=== PATIENT | male | born 1995 | race Caucasian/White ===

== ENCOUNTER → 2017-12-12 08:31 | Outpatient (CLI) | payer OTHER, SELFPAY ==
[2017-12-12 09:19] LABS: Hemoglobin 15.6 g/dl (13.0-16.5); Mean Corp Hgb Conc 33.9 g/gl (32-36); Mean Corpuscular Hgb 29.4 pg (27.0-32.0); Mean Corpuscular Volume 86.6 fL (80-94); Mean Platelet Vol. 9.3 fl (6.2-12.0); Platelet Count 265 K/mm3 (150-450); RBC Distribution Width CV 12.4 % (11.6-14.6); RBC Distribution Width SD 39.2 fl (35.1-43.9); Red Blood Count 5.31 M/mm3 (4.6-6.2); White Blood Count 3.3 K/mm3 (4.4-11.0)
[2017-12-12 09:22] LABS: Scan Indicated on CBC? Y/N NO
[2017-12-12 09:45] LABS: Hemoglobin A1c 5.2 % (4.2-6.3)
[2017-12-12 09:47] LABS: AST(SGOT) 19 U/L (15-37); Alanine Aminotransfer ALT/SGPT 26 U/L (16-61); Anion Gap 6 (5-15); BUN 19 mg/dL (7-18); BUN/Creat Ratio 15.8 RATIO (10-20); Calcium,Total 9.2 mg/dL (8.5-10.1); Chloride 106 mmol/L (98-107); Cholesterol 195 mg/dL (200); EST Glomerular Filtration Rate 80 mL/min (>60); Est Glom Filt Rate - Afr Amer 96 mL/min (>60); Glucose 95 mg/dL (74-106); High Density Lipoprotein 57 mg/dL; Potassium 3.9 mmol/L (3.5-5.1); Sodium Level 142 mmol/L (136-145); Triglycerides 65 mg/dL; Very Low Density Lipoprotein 13 mg/dL (5-40)
[2017-12-13 09:55] LABS: Vitamin D,25 Hydroxy 26.4 ng/mL (29.95-100.01)
== END ==
PROVIDERS: Family Provider Family Medicine; PCP Family Medicine
DX: Z79.899 Other long term (current) drug therapy (principal)
CPT/HCPCS: 36415; 80048; 80061; 82306; 83036; 84450; 84460; 85027

== ENCOUNTER → 2019-01-30 | Outpatient (CLI) | payer OTHER, SELFPAY ==
[2014-02-04 14:02] VITALS: BMI 22.3
[2019-01-30 09:21] LABS: Hematocrit 46.4 % (40-54); Mean Corp Hgb Conc 34.5 g/gl (32-36); Mean Corpuscular Hgb 29.4 pg (27.0-32.0); Mean Corpuscular Volume 85.3 fL (80-94); Mean Platelet Vol. 9.6 fl (6.2-12.0); Platelet Count 248 K/mm3 (150-450); RBC Distribution Width SD 37.3 fl (35.1-43.9); Red Blood Count 5.44 M/mm3 (4.6-6.2); Scan Indicated on CBC? Y/N NO; White Blood Count 4.3 K/mm3 (4.4-11.0)
[2019-01-30 10:03] LABS: AST(SGOT) 13 U/L (15-37); Alanine Aminotransfer ALT/SGPT 21 U/L (16-61); Anion Gap 1 (5-15); BUN 16 mg/dL (7-18); BUN/Creat Ratio 13.6 RATIO (10-20); Chloride 107 mmol/L (98-107); Cholesterol 199 mg/dL (200); Creatinine, Serum 1.18 mg/dL (0.70-1.30); EST Glomerular Filtration Rate 80 mL/min (>60); Est Glom Filt Rate - Afr Amer 97 mL/min (>60); Glucose 95 mg/dL (74-106); High Density Lipoprotein 53 mg/dL; Potassium 3.9 mmol/L (3.5-5.1); Sodium Level 137 mmol/L (136-145); Triglycerides 77 mg/dL; Very Low Density Lipoprotein 15 mg/dL (5-40)
[2019-01-30 10:08] LABS: Hemoglobin A1c 5.1 % (4.2-6.3)
== END | disposition home or self-care (01) ==
PROVIDERS: Family Provider Family Medicine; PCP Family Medicine
DX: Z79.899 Other long term (current) drug therapy (principal)
CPT/HCPCS: 36415; 80048; 80061; 83036; 84450; 84460; 85027

== ENCOUNTER → 2020-02-14 14:12 | Outpatient (CLI) | payer OTHER, SELFPAY ==
[2020-02-14 14:28] LABS: Hematocrit 45.2 % (40-54); Hemoglobin 15.1 g/dL (13.0-16.5); Mean Corp Hgb Conc 33.4 g/dL (32-36); Mean Corpuscular Hgb 29.3 pg (27.0-32.0); Mean Corpuscular Volume 87.8 fL (80-94); Mean Platelet Vol. 9.4 fl (6.2-12.0); Platelet Count 277 K/mm3 (150-450); RBC Distribution Width CV 11.9 % (11.6-14.6); RBC Distribution Width SD 38.2 fl (35.1-43.9); Red Blood Count 5.15 M/mm3 (4.6-6.2); White Blood Count 5.7 K/mm3 (4.4-11.0)
[2020-02-14 14:44] LABS: Hemoglobin A1c 5.3 % (3.8-5.6)
[2020-02-14 15:35] LABS: AST(SGOT) 21 U/L (15-37); Alanine Aminotransfer ALT/SGPT 32 U/L (16-61); Anion Gap 6 (5-15); BUN 22 mg/dL (7-18); BUN/Creat Ratio 17.2 RATIO (10-20); Calcium,Total 9.4 mg/dL (8.5-10.1); Chloride 109 mmol/L (98-107); Cholesterol 212 mg/dL (200); Creatinine, Serum 1.28 mg/dL (0.70-1.30); EST Glomerular Filtration Rate 72 mL/min (>60); Est Glom Filt Rate - Afr Amer 88 mL/min (>60); Glucose 94 mg/dL (74-106); High Density Lipoprotein 47 mg/dL; Sodium Level 141 mmol/L (136-145); Triglycerides 236 mg/dL; Very Low Density Lipoprotein 47 mg/dL (5-40)
== END ==
PROVIDERS: PCP Family Medicine; Visit Provider Family Medicine
DX: Z79.899 Other long term (current) drug therapy (principal)
CPT/HCPCS: 36415; 80048; 80061; 83036; 84450; 84460; 85027

== ENCOUNTER → 2021-02-19 06:09 | Outpatient (CLI) | payer SELFPAY ==
[2014-02-04 14:02] VITALS: BMI 22.3
[2021-02-19 08:26] LABS: Absolute Lymphocyte Count 1.53 X10^3/uL (0.83-4.51); Absolute Neutrophil Count 3.7 X10^3/uL (2.0-7.7); Basophil# 0.03 X10^3/uL; Basophil% 0.5 % (0-1); Eosinophil# 0.14 X10^3/uL; Eosinophils% 2.3 % (0-5); Hematocrit 48.3 % (40-54); Hemoglobin 15.9 g/dL (13.0-16.5); Lymphocyte # 1.53 X10^3/ul (0.83-4.51); Lymphocyte % 25.6 % (19-41); Mean Corp Hgb Conc 32.9 g/dL (32-36); Mean Corpuscular Hgb 28.7 pg (27.0-32.0); Mean Corpuscular Volume 87.2 fL (80-94); Mean Platelet Vol. 9.7 fl (6.2-12.0); Monocyte# 0.53 X10^3/uL; Monocyte% 8.9 % (0-10); NRBC Flagged by Analyzer 0 % (0-5); Neutrophil # 3.73 X10^3/uL (2.7-7.7); Neutrophil % 62.4 % (47-70); Platelet Count 307 K/mm3 (150-450); RBC Distribution Width SD 38.5 fl (35.1-43.9); Red Blood Count 5.54 M/mm3 (4.6-6.2)
[2021-02-19 08:56] LABS: ALB/GLOB Ratio 1.5 RATIO (0.9-2.4); AST(SGOT) 19 U/L (15-37); Alanine Aminotransfer ALT/SGPT 35 U/L (16-61); Albumin, Serum 4.6 g/dL (3.2-5.0); Alkaline Phosphatase 73 U/L (45-117); Anion Gap 6 (5-15); BUN 15 mg/dL (7-18); BUN/Creat Ratio 12.9 RATIO (10-20); Calcium,Total 9.3 mg/dL (8.5-10.1); Chloride 106 mmol/L (98-107); Cholesterol 215 mg/dL (200); Creatinine, Serum 1.16 mg/dL (0.70-1.30); EST Glomerular Filtration Rate 81 mL/min (>60); Est Glom Filt Rate - Afr Amer 97 mL/min (>60); Glucose 92 mg/dL (74-106); High Density Lipoprotein 55 mg/dL; Potassium 3.6 mmol/L (3.5-5.1); Protein, Total 7.6 g/dL (6.4-8.2); Sodium Level 140 mmol/L (136-145); Triglycerides 104 mg/dL; Very Low Density Lipoprotein 21 mg/dL (5-40)
== END ==
PROVIDERS: PCP Family Medicine; Referring Provider Family Medicine; Visit Provider Family Medicine
DX: Z51.81 Encounter for therapeutic drug level monitoring (principal)
CPT/HCPCS: 36415; 80053; 80061; 85025

== ENCOUNTER 2022-09-03 16:44 | Emergency (ER) | payer SELFPAY, OTHER ==
[2022-09-03 16:45] VITALS: BP 132/82; PULSE 86; RESP 18; TEMP 36.3; O2SAT 99; BMI 31.6
--- NOTE | 2022-09-03 17:51 | EX.ED.DYSGE1 ---
HPI History of Present Illness Chief Complaint: Syncope Informant: patient Onset/Context/Timing Onset: Today Context: Sudden Onset Timing: Intermittent and Lasts (1-2 minutes) Quality: Weak, shaking Location: Generalized Worsened by: Nothing Relieved by: Nothing Narrative Narrative: Patient presents with near syncopal episode that occurred today. Patient states he was working at the [employer] when he began to feel anxious. Patient states he felt like he was shaking all over and then became weak. Patient states he fell to the ground. Patient states he was awake the entire time. Patient denies any loss of consciousness. Patient states his symptoms lasted approximately 1 to 2 minutes. Patient states he was able to get up after that. Patient denies any head injury. Patient denies any chest pain or shortness of breath. Patient denies any palpitations. Patient denies any headaches. Patient states he had a similar episode in the past when he was working at a different job. [facility] Medical History (Updated 09/03/22 @ 21:[address] Callum Ram DO) Anxiety Home Medications clindamycin HCl 150 mg capsule 450 mg PO TID ##90 02/04/14 [Rx Last Taken Unknown] oxycodone-acetaminophen 5 mg-325 mg tablet 1 - 2 tab PO Q6H PRN PRN Pain ##20 02/04/14 [Rx Last Taken Unknown] Allergy/AdvReac Type Severity Reaction Status Date / Time No Known Allergies Allergy Verified 09/03/22 16:44 Surgical History no surgical history no surgical history Social History Smoking Status: Unknown if ever smoked ROS ROS ED Constitutional Constitutional ED: Denies chills or fever(s) Eyes Eyes: Denies blurry vision or change in vision ENT ENT ED: Denies rhinorrhea or sore throat Cardiovascular Cardiovascular: Denies chest pain or palpitations Respiratory/Chest Respiratory/Chest: Denies cough or dyspnea Gastrointestinal Gastrointestinal: Denies nausea or vomiting Genitourinary Genitourinary ED: Denies dysuria or hematuria Musculoskeletal Musculoskeletal: Denies back pain or neck pain Integumentary Denies abscess or rash Neurologic Neurologic: Denies headache(s) or weakness Allergic/Immunologic Allergic/Immunologic ED: Denies mouth swelling or urticaria EXAM Physical Exam Const Vital Signs: 09/03/22 16:45 09/03/22 18:39 09/03/22 18:41 Temperature 97.4 F L Temperature Source Temporal Pulse Rate 86 78 Respiratory Rate 18 17 Respiratory Effort Normal Respiratory Pattern Normal Blood Pressure 132/82 H 110/83 H Blood Pressure Mean 98 92 Pulse Ox 99 98 Oxygen Delivery Method Room Air Room Air 09/03/22 21:22 Temperature Temperature Source Pulse Rate 74 Respiratory Rate 15 Respiratory Effort Respiratory Pattern Blood Pressure 112/80 Blood Pressure Mean 90 Pulse Ox 100 Oxygen Delivery Method Room Air Positive well nourished and well developed General Appearance ED: well developed HEENT Reports moist mucous membranes Neck supple and no JVD Resp normal respiratory effort and clear to auscultation bilaterally Cardio regular rate, regular rhythm and no murmurs GI normal to inspection, nondistended, normoactive bowel sounds and non-tender Palpation: soft Extremity normal to inspection General Extremety ED: Negative for edema or tenderness General Extremity: Negative for edema Neuro oriented x3, CN's II-XII intact bilaterally and no sensory deficits noted Sensorium / Orientation: alert Motor Exam: strength 5/5 throughout Psych mental status grossly normal Skin no rashes or lesions noted MDM MDM MDM Narrative Medical decision making narrative: EKG was obtained. On my interpretation, shows normal sinus rhythm with a rate of 76. [place] interval was within normal limits. QRS interval was normal. QTc interval was normal. There is some right axis deviation at 133. There is an incomplete right bundle branch block pattern noted. There are no acute ST or T wave changes noted. PA and lateral chest x-ray was obtained. There are 2 views. On my interpretation, lung benites are clear. There is normal cardiac silhouette. Bony thorax is normal. There is no acute process noted. Radiologist also interpreted the x-ray and agrees. CBC was obtained and was reviewed. This was within normal limits. D-dimer was obtained and was reviewed. This was also within normal limits. Basic metabolic profile was obtained and was reviewed. This was completely within normal limits. High-sensitivity troponin was obtained and was normal at 3. 2-hour repeat high-sensitivity troponin was obtained and was normal at 4. Patient was advised of his findings. Patient was instructed to get plenty of rest. Patient was instructed to follow-up with his primary care physician in 5 to 7 days. Patient was instructed return if worse in any way. Patient understood and was agreeable with the plan. All questions were answered. Lab Data Attestation: I reviewed the patient's lab results. Labs: Laboratory Results - last 24 hr 09/03/22 09/03/22 09/03/22 18:00 18:00 18:00 WBC 6.0 RBC 5.59 Hgb 16.3 Hct 50.0 MCV 89.4 MCH 29.2 MCHC 32.6 RDW Std Deviation 38.3 RDW Coeff of Kaleb 11.8 Plt Count 332 MPV 9.5 Immature Gran % (Auto) 0.300 Neut % (Auto) 65.9 Lymph % (Auto) 23.6 Childress % (Auto) 7.5 Eos % (Auto) 2.2 Baso % (Auto) 0.5 Absolute Neuts (auto) 3.9 Absolute Lymphs (auto) 1.41 Nucleated RBC % 0 D-Dimer Quant (PE/DVT) 0.32 Sodium 136 Potassium 4.0 Chloride 106 Carbon Dioxide 24.0 Anion Gap 6 BUN 14 Creatinine 1.12 Estim Creat Clear Calc 95.00 Est GFR (MDRD) Af Amer 100 Est GFR (MDRD) Non-Af 83 BUN/Creatinine Ratio 12.5 Glucose 103 Calcium 9.2 Troponin I High Sens 3 09/03/22 20:28 WBC RBC Hgb Hct MCV MCH MCHC RDW Std Deviation RDW Coeff of Kaleb Plt Count MPV Immature Gran % (Auto) Neut % (Auto) Lymph % (Auto) Childress % (Auto) Eos % (Auto) Baso % (Auto) Absolute Neuts (auto) Absolute Lymphs (auto) Nucleated RBC % D-Dimer Quant (PE/DVT) Sodium Potassium Chloride Carbon Dioxide Anion Gap BUN Creatinine Estim Creat Clear Calc Est GFR (MDRD) Af Amer Est GFR (MDRD) Non-Af BUN/Creatinine Ratio Glucose Calcium Troponin I High Sens 4 Radiography Diagnostic Testing: Clinical Impression(s) from Imaging Studies Chest X-Ray 09/03/22 18:27 IMPRESSION: Normal x-ray examination of the chest. Electronically Signed: Bautista Servin DO at 18:58 EST Reading Location ID and State: [address] [place] [address] Tel [phone], Service support , EKG Initial EKG: Attestation: I personally reviewed and interpreted this EKG as follows: Interpretation: Sinus Rhythm (76), No Acute Injury Pattern and RBBB (Incomplete) Prior EKG tracings: not available for review Prior: No Prior Discharge Plan Triage Chief Complaint: Syncope ED Provider: Callum Ram Dx/Rx/DC Orders Clinical Impression: Near syncope, History of anxiety Instructions: ED Near-Fainting, Uncertain Cause Prescriptions: No Action clindamycin HCl 150 MG capsule 450 mg PO TID Qty: 90 0RF oxycodone-acetaminophen 1 TABLET tablet 1 - 2 tab PO Q6H PRN PRN (Reason: Pain) Qty: 20 0RF Primary Care Provider: Lauro Hernandez Referrals: Lauro Hernandez MD [Primary Care Provider] - 5-7 Days Disposition Disposition: Home, Self Care
--- NOTE | 2022-09-03 17:54 | EKG12_ITS ---
Test Reason : Blood Pressure : / mmHG Vent. Rate : 076 BPM Atrial Rate : 076 BPM P-R Int : 160 ms QRS Dur : 096 ms QT Int : 360 ms P-R-T Axes : 060 133 033 degrees QTc Int : 405 ms Normal sinus rhythm Right axis deviation Incomplete right bundle branch block Possible Right ventricular hypertrophy Abnormal ECG Confirmed by TAMIKO LIRA, WAAQR ([id number]), editor at large MELISSA TIWARI ([id number]) on 09/05/2022 11:21:23 AM Referred By: Confirmed By:WAQAR MORRISON MD
--- NOTE | 2022-09-03 18:11 | NURSING ---
NO OLD EKGS
--- NOTE | 2022-09-03 18:27 | RAD_ITS ---
STUDY: X-RAY CHEST REASON FOR EXAM: Male, 27 years old. Chest pain. Syncopal episode today. TECHNIQUE: PA and lateral views of the chest. COMPARISON: None. FINDINGS: The lungs are clear and expanded. There is no demonstrated pleural abnormality. Normal size heart. Normal mediastinum and aristeo. Normal visualized pulmonary arteries. Normal visualized aortic arch and descending thoracic aorta. Normal visualized thoracic spine. Normal visualized ribs, clavicles, and shoulders. There is no demonstrated abnormality of the visualized soft tissue structures of the upper abdomen. RAD/Chest PA and Lateral IMPRESSION: Normal x-ray examination of the chest. Electronically Signed: Bautista Servin DO at 18:58 EST ,
[2022-09-03 18:39] VITALS: BP 110/83; PULSE 78; RESP 17; O2SAT 98
[2022-09-03 18:43] LABS: Anion Gap 6 (5-15); BUN 14 mg/dL (7-18); BUN/Creat Ratio 12.5 RATIO (10-20); Calcium,Total 9.2 mg/dL (8.5-10.1); Chloride 106 mmol/L (98-107); Creatinine, Serum 1.12 mg/dL (0.70-1.30); EST Glomerular Filtration Rate 83 mL/min (>60); Est Glom Filt Rate - Afr Amer 100 mL/min (>60); Glucose 103 mg/dL (74-106); Sodium Level 136 mmol/L (136-145); Troponin-I HS (w/2H Reflex) 3 pg/mL (3.0-78.0)
[2022-09-03 18:50] LABS: Absolute Lymphocyte Count 1.41 X10^3/uL (0.83-4.51); Absolute Neutrophil Count 3.9 X10^3/uL (2.0-7.7); Basophil# 0.03 X10^3/uL; Basophil% 0.5 % (0-1); Eosinophil# 0.13 X10^3/uL; Eosinophils% 2.2 % (0-5); Hemoglobin 16.3 g/dL (13.0-16.5); Lymphocyte # 1.41 X10^3/ul (0.83-4.51); Lymphocyte % 23.6 % (19-41); Mean Corp Hgb Conc 32.6 g/dL (32-36); Mean Corpuscular Hgb 29.2 pg (27.0-32.0); Mean Corpuscular Volume 89.4 fL (80-94); Mean Platelet Vol. 9.5 fl (6.2-12.0); Monocyte# 0.45 X10^3/uL; Monocyte% 7.5 % (0-10); NRBC Flagged by Analyzer 0 % (0-5); Neutrophil # 3.93 X10^3/uL (2.7-7.7); Neutrophil % 65.9 % (47-70); Platelet Count 332 K/mm3 (150-450); RBC Distribution Width CV 11.8 % (11.6-14.6); RBC Distribution Width SD 38.3 fl (35.1-43.9); Red Blood Count 5.59 M/mm3 (4.6-6.2)
[2022-09-03 18:52] LABS: D-Dimer Quantitative (DVT/PE) 0.32 FEU/ug/m (0.27-0.49)
[2022-09-03 20:11] LABS: Reflex Troponin-HS? (from REC) Y
[2022-09-03 21:04] LABS: Troponin-I HS 4 pg/mL (3.0-78.0)
[2022-09-03 21:22] VITALS: BP 112/80; PULSE 74; RESP 15; O2SAT 100
[2022-09-03 21:48] VITALS: BP 112/83; PULSE 80
== END 2022-09-03 21:51 | disposition home or self-care (01) ==
PROVIDERS: Emergency Provider Emergency Medicine; PCP Family Medicine; Visit Provider Emergency Medicine
DX: R55 Syncope and collapse (principal); F41.9 Anxiety disorder, unspecified
CPT/HCPCS: 71046; 80048; 84484; 85025; 85379; 93005; 99284; A4216

== ENCOUNTER 2023-10-25 11:30 | Emergency (ER) | payer MEDICAID, SELFPAY ==
[2023-10-25 11:31] VITALS: BP 122/87; PULSE 80; RESP 14; TEMP 36.6; O2SAT 100; BMI 30.6
--- NOTE | 2023-10-25 12:47 | EDS_ITS ---
HPI HPI - Psych History of Present Illness Chief Complaint: Mental Health Narrative Narrative: 25-year-old male presenting for evaluation. Apparently he was brought in voluntarily by Mart[facility]nez CRESPO as his family had brought a man. Per Counseling center the patient has had some ruminating thoughts, past trauma. He does have some relational issues with his family but he is is not homicidal or suicidal. He does tend to self isolate at times. Patient has no access to weapons and the patient feels safe. PFSH PFS Medical History Anxiety Home Medications NK 10/24/23 [History Last Taken Unknown] Allergy/AdvReac Type Severity Reaction Status Date / Time No Known Allergies Allergy Verified 10/25/23 11:32 Social History Smoking Status: Never smoker alcohol intake: never ROS ROS ED Constitutional Constitutional ED: Denies chills, fever(s) or sweats Eyes Eyes: Denies blurry vision or change in vision ENT ENT ED: Denies ear pain or sore throat Cardiovascular Cardiovascular: Denies chest pain, palpitations or racing heartbeat Respiratory/Chest Respiratory/Chest: Denies cough, dyspnea or sputum Gastrointestinal Gastrointestinal: Denies abdominal pain, constipation, diarrhea, nausea or vomiting Genitourinary Genitourinary ED: Denies dysuria, hematuria or urinary frequency Musculoskeletal Musculoskeletal: Denies arthralgias, myalgias or neck pain Integumentary Denies abscess, Abrasions or rash Neurologic Neurologic: Denies headache(s), paresthesias or weakness Psychiatric Psychiatric: Denies anxiety, depression, suicidal ideation or suicidal thoughts Endocrine Endocrinology: Denies polydipsia or polyuria EXAM Physical Exam Const Vital Signs: 10/25/23 11:31 Temperature 97.8 F Temperature Source Temporal Pulse Rate 80 Respiratory Rate 14 Blood Pressure 122/87 H Blood Pressure Mean 98 Pulse Ox 100 Oxygen Delivery Method Room Air Positive well nourished General Appearance ED: Negative for pallor HEENT Reports moist mucous membranes normocephalic and atraumatic Eyes PERRL and EOMs intact bilaterally Resp normal respiratory effort Auscultation: Negative for rales, rhonchi or wheezes Cardio Rate: regular rate Rhythm: regular rhythm Neuro oriented x3 and CN's II-XII intact bilaterally Sensorium / Orientation: alert Psych mental status grossly normal Appearance: grossly normal Attitude: calm and engaged Activity / Motor Behavior: appropriate eye contact Thought Process: normal thought process Thought Content: normal thought content Memory / Cognition: memory grossly intact Insight: insight good Judgement: judgement good Skin General Skin Exam: Negative for jaundice or pallor MDM MDM MDM Narrative Medical decision making narrative: Patient presenting for evaluation from the counseling center. He is not homicidal or suicidal. He has some family issues and increasing ruminating thoughts that were evaluated today. He feels safe at home. The counseling center felt he was safe to go home. He is discharged in stable condition. He was given the number for the [employer] if needed. Impression: 1. History of Asperger's Discharge Plan Triage Chief Complaint: Mental Health ED Provider: Hugo Hope Dx/Rx/DC Orders Clinical Impression: Asperger syndrome Prescriptions: No Action NK Primary Care Provider: Reynaldo Cole Referrals: Reynaldo Cole MD [Primary Care Provider] - Disposition Disposition: Home, Self Care Discharge Date/Time: 10/25/23 12:53
== END 2023-10-25 12:53 | disposition home or self-care (01) ==
PROVIDERS: Emergency Provider Student in an Organized Health Care Education/Training Program; PCP Family Medicine; Visit Provider Student in an Organized Health Care Education/Training Program
DX: F84.5 Asperger's syndrome (principal); Z63.8 Other specified problems related to primary support group
CPT/HCPCS: 99282

== ENCOUNTER → 2023-10-27 | Outpatient (CLI) | payer MEDICAID, SELFPAY ==
--- OUTSIDE RECORDS SUMMARY | 2023-10-27 12:30 | XMS RPT_ITS | CCD ---
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 14 tablet 0 05/14/2023 05/21/2023 Active Completed/Discontinued Medications Medication Drug Class(es) Dates Sig (Normalized) Sig (Original) ARIPiprazole 5 mg oral tablet (1 source) Atypical Antipsychotic take 1 tablet by mouth once daily ARIPiprazole (ABILIFY) 5 mg tablet Take 5 mg by mouth once daily. 0 Active Problems Problem Classification Problem Date Documented Da te Episodic/Chronic Otitis media and related conditions (1 source) Acute right otitis media; Translations: [Otitis media, unspecified, right ear] 05-14-2023 Episodic Results Test Name Value Interpretation Reference Range Facil ity Vital Signs Date Time Vital Sign Value Performing Clinician Faci lity 05-14-2023 09:45-0400 Body temperature 97.3 [degF] Darnell Ramirez APRN.CNP Work Phone: [facility] 05-14-2023 09:45-0400 Body weight 99.61 kg Darnell Ramirez APRN.IRIS Work Phone: [facility] 05-14-2023 09:45-0400 Diastolic blood pressure 83 mm[Hg] Darnell Ramirez APRN.CNP Work Phone: [facility] 05-14-2023 09:45-0400 Heart rate 85 /min Darnell Ramirez ROD BUSTER.FIELD OPERATIONS COORDINATOR Work Phone: [facility] 05-14-2023 09:45-0400 Respiratory rate 18 /min Darnell Ramirez ROD BUSTER.FIELD OPERATIONS COORDINATOR Work Phone: [facility] 05-14-2023 09:45-0400 SaO2% (BldA) [Mass fraction] 97 % Darnell Ramirez ROD BUSTER.FIELD OPERATIONS COORDINATOR Work Phone: [facility] 05-14-2023 09:45-0400 Systolic blood pressure 134 mm[Hg] Darnell Ramirez ROD BUSTER.FIELD OPERATIONS COORDINATOR Work Phone: [facility] Encounters Encounter Date Encounter Type Care Provider Facility Start: 05-14-2023 End: 05-14-2023 ambulatory Facility:[facility] Start: 05-14-2023 End: 05-14-2023 Office outpatient visit 25 minutes Darnell Ramirez ROD BUSTER.FIELD OPERATIONS COORDINATOR Work Phone: [facility] Plan of Treatment Date Care Activity Detail Author Start: 04-21-2023 Influenza vaccination Influenza Vacc ine (#1) [facility] Start: 08-21-2022 Depression Assessment Depression Ass [facility] Start: 2013 Urine microalbumin profile DTa P,Tdap,Td Vaccine (1 - Tdap) [facility] Start: 2012 Hepatitis C Screening Hepatitis C [place] [facility] Start: 2012 HIV Screening HIV Screening [facility] Start: 01-20-1995 Covid-19 Vaccine (#1) Covid-19 Vacci ne (#1) [facility] Start: 1994 Hepatitis B Vaccine (1 of 3 - 3-dose series) Hepatitis B Vaccine (1 of 3 - 3-dose series) [facility] Payers Date Payer Category Payer Unknown [employer] P AY [employer] PA[employer] GENERIC [id number] 2020-Present [id number] [place] [id number] Other [id number] Social History Date Type Detail Facility Start: 05-14-2023 Tobacco smoking stat NHIS Never smoked tobacco [facility] Start: 05-14-2023 Tobacco use and exposure Smoke less tobacco non-user [facility] Start: 05-14-2023 History of Social function [facility] Start: 05-14-2023 Tobacco use panel [facility] Start: 1994 Sex Assigned At [facility] Progress note 05-14-2023 Note Date & Type Note Facility 05-14-2023 Note HNO ID: [id number] Author: Darnell Ramirez APRN.FIELD OPERATIONS COORDINATOR Service: ? Author Type: Nurse Practitioner Type: Progress Notes Filed: 05/14/2023 10:19 AM Note Text: Subjective HPI Nontoxic-appearing male presents urgent care chief complaint possible ear infection. Duration of symptoms 5 days. Associated symptoms right ear pain and fullness. Patient states he can hear however it is slightly muffled. No ear trauma. No otorrhea. No OTC medication use. Denies any fever body aches chills productive cough chest pain shortness of breath pleuritic pain hemoptysis nausea vomiting abdominal pain change in bowel or bladder habits. Past medical history prescription medication use and allergies reviewed. .Patient presents with: Ear Pain: R ear x 5 days fullness History reviewed. No pertinent past medical history. History reviewed. No pertinent surgical history. ALLERGIES Patient has no known allergies. MEDICATIONS ARIPiprazole (ABILIFY) 5 mg tablet Take 5 mg by mouth once daily. History reviewed. No pertinent family history. Social History Tobacco Use Smoking status: Never Smokeless tobacco: Never BP 134/83 Pulse 85 Temp 36.3 ?C (97.3 ?F) Resp 18 Wt 99.6 kg (219 lb 9.6 oz) SpO2 97% Review of Systems Constitutional: Negative for chills, fever and malaise/fatigue. HENT: Positive for ear pain. Negative for congestion, ear discharge, sinus pain and sore throat. Eyes: Negative for blurred vision, pain, discharge and redness. Respiratory: Negative for cough, hemoptysis, sputum production, shortness of breath, wheezing and stridor. Cardiovascular: Negative for chest pain. Gastrointestinal: Negative for abdominal pain, diarrhea, nausea and vomiting. Musculoskeletal: Negative for myalgias. Skin: Negative for itching and rash. Neurological: Negative for dizziness and headaches. Objective Physical Exam Constitutional: General: He is not in acute distress. Appearance: He is not diaphoretic. HENT: Head: Normocephalic. Jaw: No trismus, tenderness, swelling or pain on movement. Right Ear: Ear canal and external ear normal. Drainage, swelling and tenderness present. Tympanic membrane is erythematous and bulging. Left Ear: Tympanic membrane, ear canal and external ear normal. Ears: Comments: Erythema edema noted auditory canal. Unable to fully visualize TM. What portion of TM that was visualized was intact however it was bulging and erythematous. Nose: Congestion present. Mouth/Throat: Mouth: Mucous membranes are moist. Pharynx: Oropharynx is clear. Uvula midline. No pharyngeal swelling, oropharyngeal exudate, posterior oropharyngeal erythema or uvula swelling. Eyes: Conjunctiva/sclera: Conjunctivae normal. Pupils: Pupils are equal, round, and reactive to light. Cardiovascular: Rate and Rhythm: Normal rate and regular rhythm. Heart sounds: Normal heart sounds. Pulmonary: Effort: Pulmonary effort is normal. No tachypnea, accessory muscle usage or respiratory distress. Breath sounds: Normal breath sounds. No stridor. No wheezing, rhonchi or rales. Abdominal: General: There is no distension. Palpations: Abdomen is soft. Tenderness: There is no abdominal tenderness. There is no guarding or rebound. Musculoskeletal: Cervical back: Normal range of motion and neck supple. No edema, erythema, rigidity or tenderness. No pain with movement. Normal range of motion. Lymphadenopathy: Cervical: No cervical adenopathy. Skin: General: Skin is warm and dry. Neurological: Mental Status: He is alert and oriented to person, place, and time. ASSESSMENT/PLAN: 1. Acute otitis media, right - ICD9: 382.9, ICD10: H66.91 Diagnosis otitis media right ear. Unable to fully visualize TM due to auditory canal swelling edema. Will use ofloxacin otic drops as well as Augmentin. Follow-up with PCP 2 to 3 days reevaluation. Patient was educated on supportive therapies. Patient was instructed to immediately proceed to emergency room for any new, worsening, or symptoms lasting longer than anticipated. The patient's clinical presentation is otherwise unremarkable at this time. Based on exam and clinical finding, the patient is stable for discharge. Plan of care was discussed with patient. Patient verbalizes understanding and agrees to plan of care. This note was generated using netTALK software. It may contain errors in wording, punctuation, or spelling. Darnell Ramirez APRN.IRIS [facility] History of Present illness Narrative 05-14-2023 Darnell Ramirez APRN.IRIS - 05/14/2023 10:03 AM EDT Note Date & Type Note Facility 05-14-2023 History of Presen t illness Narrative Subjective HPI Nontoxic-appearing male presents urgent care chief complaint possible ear infection. Duration of symptoms 5 days. Associated symptoms right ear pain and fullness. Patient states he can hear however it is slightly muffled. No ear trauma. No otorrhea. No OTC medication use. Denies any fever body aches chills productive cough chest pain shortness of breath pleuritic pain hemoptysis nausea vomiting abdominal pain change in bowel or bladder habits. Past medical history prescription medication use and allergies reviewed. .Patient presents with: Ear Pain: R ear x 5 days fullness History reviewed. No pertinent past medical history. History reviewed. No pertinent surgical history. ALLERGIES Patient has no known allergies. MEDICATIONS ARIPiprazole (ABILIFY) 5 mg tablet Take 5 mg by mouth once daily. History reviewed. No pertinent family history. Social History Tobacco Use Smoking status: Never Smokeless tobacco: Never BP 134/83 Pulse 85 Temp 36.3 C (97.3 F) Resp 18 Wt 99.6 kg (219 lb 9.6 oz) SpO2 97% Review of Systems Constitutional: Negative for chills, fever and malaise/fatigue. HENT: Positive for ear pain. Negative for congestion, ear discharge, sinus pain and sore throat. Eyes: Negative for blurred vision, pain, discharge and redness. Respiratory: Negative for cough, hemoptysis, sputum production, shortness of breath, wheezing and stridor. Cardiovascular: Negative for chest pain. Gastrointestinal: Negative for abdominal pain, diarrhea, nausea and vomiting. Musculoskeletal: Negative for myalgias. Skin: Negative for itching and rash. Neurological: Negative for dizziness and headaches. Objective Physical Exam Constitutional: General: He is not in acute distress. Appearance: He is not diaphoretic. HENT: Head: Normocephalic. Jaw: No trismus, tenderness, swelling or pain on movement. Right Ear: Ear canal and external ear normal. Drainage, swelling and tenderness present. Tympanic membrane is erythematous and bulging. Left Ear: Tympanic membrane, ear canal and external ear normal. Ears: Comments: Erythema edema noted auditory canal. Unable to fully visualize TM. What portion of TM that was visualized was intact however it was bulging and erythematous. Nose: Congestion present. Mouth/Throat: Mouth: Mucous membranes are moist. Pharynx: Oropharynx is clear. Uvula midline. No pharyngeal swelling, oropharyngeal exudate, posterior oropharyngeal erythema or uvula swelling. Eyes: Conjunctiva/sclera: Conjunctivae normal. Pupils: Pupils are equal, round, and reactive to light. Cardiovascular: Rate and Rhythm: Normal rate and regular rhythm. Heart sounds: Normal heart sounds. Pulmonary: Effort: Pulmonary effort is normal. No tachypnea, accessory muscle usage or respiratory distress. Breath sounds: Normal breath sounds. No stridor. No wheezing, rhonchi or rales. Abdominal: General: There is no distension. Palpations: Abdomen is soft. Tenderness: There is no abdominal tenderness. There is no guarding or rebound. Musculoskeletal: Cervical back: Normal range of motion and neck supple. No edema, erythema, rigidity or tenderness. No pain with movement. Normal range of motion. Lymphadenopathy: Cervical: No cervical adenopathy. Skin: General: Skin is warm and dry. Neurological: Mental Status: He is alert and oriented to person, place, and time. ASSESSMENT/PLAN: 1. Acute otitis media, right - ICD9: 382.9, ICD10: H66.91 Diagnosis otitis media right ear. Unable to fully visualize TM due to auditory canal swelling edema. Will use ofloxacin otic drops as well as Augmentin. Follow-up with PCP 2 to 3 days reevaluation. Patient was educated on supportive therapies. Patient was instructed to immediately proceed to emergency room for any new, worsening, or symptoms lasting longer than anticipated. The patient's clinical presentation is otherwise unremarkable at this time. Based on exam and clinical finding, the patient is stable for discharge. Plan of care was discussed with patient. Patient verbalizes understanding and agrees to plan of care. This note was generated using netTALK software. It may contain errors in wording, punctuation, or spelling. Darnell Ramirez APRN.FIELD OPERATIONS COORDINATOR documented in this encounter [facility] Evaluation note Note Date & Type Note Facility documented in this encounter [facility] Summary Purpose Family History No Family History Records Found Advance Directives No Advanced Directives Records Found Additional Source Comments Source Comments (unrecognize d section and content) In the event this informatio n is protected by the Federal Confidentiality of Alcohol and Drug Abuse Patient Records regulations: The Federal rules restrict any use of the information to criminally investigate or prosecute any alcohol or drug abuse patient.[facility] Reason for Visit (unrecogniz ed section and content) (unrecognized sect ion and content) No Status Records Found INFORMATION SOURCE (unrecogn ized section and content) FOR RECORDS PERTAINING TO PATIENTS WHO ARE OR HAVE BEEN ENROLLED IN A CHEMICAL DEPENDENCY/SUBSTANCEABUSE PROGRAM, SOME INFORMATION MAY BE OMITTED. This clinical summary was aggregated from multiple sources. Caution should be exercised in using it in the provision of clinical care. This summary normalizes information from multiple sources, and as a consequence, information in this document may materially change the coding, format and clinical context of patient data. In addition, data may be omitted in some cases. CLINICAL DECISIONS SHOULD BE BASED ON THE PRIMARY CLINICAL RECORDS. [employer] [facility]. provides no warranty or guarantee of the accuracy or completeness of information in this document.
== END | disposition home or self-care (01) ==
LOC: MFPLAB 12:12
PROVIDERS: PCP Family Medicine; Visit Provider Family Medicine
DX: Z00.00 Encounter for general adult medical examination without abnormal findings (principal)

== ENCOUNTER → 2023-11-01 | Outpatient (CLI) | payer MEDICAID, SELFPAY ==
[2023-11-01 17:41] LABS: Absolute Lymphocyte Count 1.51 X10^3/uL (0.83-4.51); Absolute Neutrophil Count 4.8 X10^3/uL (2.0-7.7); Basophil# 0.03 X10^3/uL; Basophil% 0.4 % (0-1); Eosinophil# 0.12 X10^3/uL; Eosinophils% 1.7 % (0-5); Hematocrit 49.4 % (40-54); Hemoglobin 15.9 g/dL (13.0-16.5); Lymphocyte # 1.51 X10^3/ul (0.83-4.51); Lymphocyte % 21.5 % (19-41); Mean Corp Hgb Conc 32.2 g/dL (32-36); Mean Corpuscular Hgb 28.6 pg (27.0-32.0); Mean Corpuscular Volume 88.8 fL (80-94); Mean Platelet Vol. 9.7 fl (6.2-12.0); Monocyte# 0.55 X10^3/uL; Monocyte% 7.8 % (0-10); NRBC Flagged by Analyzer 0 % (0-5); Neutrophil % 68.3 % (47-70); Platelet Count 369 K/mm3 (150-450); RBC Distribution Width CV 12.4 % (11.6-14.6); RBC Distribution Width SD 40.6 fl (35.1-43.9); Red Blood Count 5.56 M/mm3 (4.6-6.2)
[2023-11-01 18:31] LABS: Anion Gap 7 (5-15); BUN 19 mg/dL (7-18); Calcium,Total 9.3 mg/dL (8.5-10.1); Chloride 105 mmol/L (98-107); Cholesterol 216 mg/dL (200); Creatinine, Serum 1.19 mg/dL (0.70-1.30); EST Glomerular Filtration Rate 77 mL/min (>60); Est Glom Filt Rate - Afr Amer 93 mL/min (>60); Glucose 97 mg/dL (74-106); High Density Lipoprotein 41 mg/dL; Sodium Level 139 mmol/L (136-145); Thyroid Stim Hormone (TSH) 1.28 uIU/mL (0.358-3.74); Triglycerides 411 mg/dL
== END | disposition home or self-care (01) ==
LOC: MFPLAB 16:08
PROVIDERS: PCP Family Medicine; Visit Provider Family Medicine
DX: Z00.00 Encounter for general adult medical examination without abnormal findings (principal)
CPT/HCPCS: 36415; 80048; 80061; 84443; 85025

== ENCOUNTER 2024-02-07 13:53 | Emergency (ER) | payer MEDICAID, SELFPAY ==
[2024-02-07 13:57] VITALS: BP 159/99; PULSE 108; RESP 16; TEMP 36.2; O2SAT 98
--- NOTE | 2024-02-07 15:08 | EX.ED.VIS.PS ---
HPI HPI - Psych History of Present Illness Chief Complaint: Suicidal Narrative Narrative: 28-year-old male presents with alevism preoccupation, and psychotic delusions, homicidal delusions that have been ongoing. He states that he is from a care home, and he told counselor today disturbing things. However, he does not regret saying them because he feels like they needed to be said. He presents for placement in a psychiatric facility secondary to flight of ideas and persecutory or Tory delusions. He made comments about cutting off peoples heads and stabbing them in the abdomen to the counselor. He denies any physical ailments, no chest pain or shortness of breath or other symptoms. When asked if he has any psychiatric diagnoses, he states schizophrenia I guess [facility] Medical History ADHD Anxiety Home Medications ?Medication ?Instructions ?Recorded ?Last Taken ?Type aripiprazole 5 mg tablet 5 mg PO DAILY 02/07/24 Unknown History Allergy/AdvReac Type Severity Reaction Status Date / Time No Known Allergies Allergy Verified 02/07/24 14:02 Social History Smoking Status: Never smoker alcohol intake: never ROS ROS ED ROS Narrative Constitutional: No fever, no chills. HEENT: No sore throat. No neck pain. No loss of vision. No rhinorrhea. Cardiovascular: No chest pain. No palpitations. No pedal edema. Respiratory: No cough, no shortness of breath. Abdominal: No abdominal pain. No nausea. No vomiting. Genitourinary: No dysuria. No hematuria. Musculoskeletal: No myalgias. No arthralgias. Neurologic: No headaches. No dizziness. No lightheadedness. Skin: No rash. No change in color. Psychiatric: States had stated disturbing things. Review of Systems ROS Unobtainable: due to mental condition EXAM Physical Exam Narrative Exam Narrative: Afebrile. Vital signs noted. HEENT: Normocephalic. Atraumatic. PERRL, EOMI. Neck soft and supple. No point tenderness or step off. Cardiovascular: Regular rate and rhythm. No murmurs, rubs, or gallops appreciated. Respiratory: No tachypnea. Lungs clear to auscultation bilaterally. Gastrointestinal: Abdomen soft, nontender, with normoactive bowel sounds. No rebound or guarding. Neurological: Awake. Alert. Nonfocal, nonlateralizing. Skin: No rash. Normal color. No pallor. Musculoskeletal: No pedal edema. Full range of motion extremities. Psychiatric: Cooperative. Flat affect. Mild flight of ideas. Const Vital Signs: 02/07/24 13:57 Temperature 97.1 F L Temperature Source Temporal Pulse Rate 108 H Respiratory Rate 16 Blood Pressure 159/99 H Blood Pressure Mean 119 Pulse Ox 98 Oxygen Delivery Method Room Air MDM MDM MDM Narrative Medical decision making narrative: I reviewed his prior ED record, and he reportedly has history of Asperger syndrome. When he was here in October, he was discharged. I reviewed the pink slip from the counseling center. It was felt that he most likely will require placement for homicidal ideation and exacerbation of schizophrenia. Medical screening labs will be obtained and reviewed. I reviewed his laboratory work and he has normal white count of 5.1, hemoglobin 15.4, hematocrit 46.4 and platelet count normal at 272. CMP is remarkable for chloride of 108 which I think is nonspecific and slightly elevated creatinine of 1.33, LFTs are grossly unremarkable. Urine for drugs of abuse is negative, and ethanol also negative at less than 3. At this point in time, I do feel that he is medically cleared for placement/crisis evaluation. He is in stable condition. Patient continues to await placement by mental health/crisis. At this point in time, he will be signed out to the overnight physician, Dr. Leola Pascual, to make final disposition on this patient which is anticipated transfer. History & Record Review Discussion w/independent historian: Patient Lab Data Attestation: I reviewed the patient's lab results. Labs: Laboratory Results - last 24 hr 02/07/24 02/07/24 15:40 15:44 WBC 5.1 RBC 5.40 Hgb 15.4 Hct 46.4 MCV 85.9 MCH 28.5 MCHC 33.2 RDW Std Deviation 37.7 RDW Coeff of Kaleb 12.0 Plt Count 272 MPV 9.2 Immature Gran % (Auto) 0.400 Neut % (Auto) 53.4 Lymph % (Auto) 32.5 Hood % (Auto) 9.7 Eos % (Auto) 3.4 Baso % (Auto) 0.6 Absolute Neuts (auto) 2.7 Absolute Lymphs (auto) 1.65 Nucleated RBC % 0 Sodium 138 Potassium 3.8 Chloride 108 H Carbon Dioxide 26.0 Anion Gap 4 L BUN 13 Creatinine 1.33 H Est GFR (MDRD) Af Amer 81 Est GFR (MDRD) Non-Af 67 BUN/Creatinine Ratio 9.8 L Glucose 96 Calcium 8.9 Total Bilirubin 0.70 AST 30 ALT 51 Alkaline Phosphatase 83 Total Protein 7.4 Albumin 4.2 Globulin 3.2 Albumin/Globulin Ratio 1.3 Urine Opiates Screen NEGATIVE Urine Methadone Screen NEGATIVE Ur Barbiturates Screen NEGATIVE Ur Phencyclidine Scrn NEGATIVE Ur Amphetamines Screen NEGATIVE MDMA (Ecstasy) Screen NEGATIVE U Benzodiazepines Scrn NEGATIVE Urine Cocaine Screen NEGATIVE U Cannabinoids Screen NEGATIVE Ur Drug Screen Comment Ethyl Alcohol < 3.0 Discharge Plan Triage Chief Complaint: Suicidal ED Provider: Jermaine Gomez Dx/Rx/DC Orders Prescriptions: No Action aripiprazole 5 mg tablet 5 mg PO DAILY Primary Care Provider: Reynaldo Cole Referrals: Reynaldo Cole MD [Primary Care Provider] - Print Language: Sinhala
[2024-02-07 16:04] LABS: Absolute Lymphocyte Count 1.65 X10^3/uL (0.83-4.51); Absolute Neutrophil Count 2.7 X10^3/uL (2.0-7.7); Basophil# 0.03 X10^3/uL; Basophil% 0.6 % (0-1); Eosinophil# 0.17 X10^3/uL; Eosinophils% 3.4 % (0-5); Hematocrit 46.4 % (40-54); Hemoglobin 15.4 g/dL (13.0-16.5); Lymphocyte # 1.65 X10^3/ul (0.83-4.51); Lymphocyte % 32.5 % (19-41); Mean Corp Hgb Conc 33.2 g/dL (32-36); Mean Corpuscular Hgb 28.5 pg (27.0-32.0); Mean Corpuscular Volume 85.9 fL (80-94); Mean Platelet Vol. 9.2 fl (6.2-12.0); Monocyte# 0.49 X10^3/uL; Monocyte% 9.7 % (0-10); NRBC Flagged by Analyzer 0 % (0-5); Neutrophil # 2.71 X10^3/uL (2.7-7.7); Neutrophil % 53.4 % (47-70); Platelet Count 272 K/mm3 (150-450); RBC Distribution Width SD 37.7 fl (35.1-43.9); White Blood Count 5.1 K/mm3 (4.4-11.0)
[2024-02-07 16:11] LABS: Alcohol, Blood (Medical)-Serum < 3.0 mg/dL
--- NOTE | 2024-02-07 16:14 | ED.RN ---
per Dr. Gomez, no sitter needed for patient
[2024-02-07 16:21] LABS: Amphetamine Urine VISTA NEGATIVE (<1000 ng/mL); Barbiturate Urine VISTA NEGATIVE (< 200 ng/mL); Benzodiazepine Urine VISTA NEGATIVE (< 200 ng/mL); Cocaine Urine VISTA NEGATIVE (< 300 ng/mL); Ecstacy Urine VISTA NEGATIVE (< 500 ng/mL); Methadone Urine VISTA NEGATIVE (< 300 ng/mL); PCP Urine VISTA NEGATIVE (< 25 ng/mL); THC Urine VISTA NEGATIVE (< 50 ng/mL); Vista UDS pH Range 5
[2024-02-07 16:39] LABS: ALB/GLOB Ratio 1.3 RATIO (0.9-2.4); AST(SGOT) 30 U/L (15-37); Alanine Aminotransfer ALT/SGPT 51 U/L (16-61); Albumin, Serum 4.2 g/dL (3.2-5.0); Alkaline Phosphatase 83 U/L (45-117); Anion Gap 4 (5-15); BUN 13 mg/dL (7-18); BUN/Creat Ratio 9.8 RATIO (10-20); Calcium,Total 8.9 mg/dL (8.5-10.1); Chloride 108 mmol/L (98-107); Creatinine, Serum 1.33 mg/dL (0.70-1.30); EST Glomerular Filtration Rate 67 mL/min (>60); Est Glom Filt Rate - Afr Amer 81 mL/min (>60); Globulin 3.2 g/dL (2.2-4.2); Glucose 96 mg/dL (74-106); Potassium 3.8 mmol/L (3.5-5.1); Protein, Total 7.4 g/dL (6.4-8.2); Sodium Level 138 mmol/L (136-145)
--- NOTE | 2024-02-07 16:46 | NURSING ---
FAXED CHART TO [facility]
--- NOTE | 2024-02-07 19:50 | ED.RN ---
REFERRED TO [facility]
--- NOTE | 2024-02-07 22:32 | ED.RN ---
[facility] called, pt declined at [facility]. Wait listed at [facility], pending AM discharges. Referred to [facility].
[2024-02-07 23:04] VITALS: BP 115/63; PULSE 85; RESP 16; O2SAT 97
--- NOTE | 2024-02-07 23:58 | ED.RN ---
PT ACCEPTED AT [facility] DR. JHAVERI N2N [phone] EXT 311. TIMO BETH 9AM
[2024-02-08 05:03] VITALS: BP 114/60; PULSE 82; RESP 18; TEMP 36.4; O2SAT 98
[2024-02-08 07:00] VITALS: BP 110/72; PULSE 81; RESP 16; O2SAT 99
== END 2024-02-08 10:28 ==
PROVIDERS: Emergency Provider Emergency Medicine; PCP Family Medicine; Visit Provider Emergency Medicine
DX: F84.5 Asperger's syndrome (principal); F23 Brief psychotic disorder; R45.851 Suicidal ideations; R45.850 Homicidal ideations; Z79.899 Other long term (current) drug therapy
CPT/HCPCS: 80053; 80307; 80320; 85025; 99283; G0480

== ENCOUNTER 2024-03-10 04:31 | Emergency (ER) | payer MEDICAID, SELFPAY ==
[2024-03-10 04:32] VITALS: BP 133/102; PULSE 84; RESP 16; TEMP 36.8; O2SAT 96; BMI 32.9
--- NOTE | 2024-03-10 05:17 | EX.ED.VIS.HA ---
HPI History of Present Illness Chief Complaint: Headache Onset/Context/Timing Onset: Days (2) Context: Gradual Timing: Continuous Quality -Headache: Positive for Sharp and Throbbing Location: Right eye and periorbital area Worsened by: Rubbing his eye Relieved by: Nothing Narrative Narrative: Patient presents with a headache that has been getting worse over the past 2 days. Patient states it has been constant. Patient states it is over the right frontal and periorbital area. Patient describes the pain as sharp and throbbing. Patient states it gets worse when he rubs his eye. Patient admits to some nausea but denies any vomiting. Patient admits to some rhinorrhea but denies any sore throat or sinus pressure. Patient denies any paresthesias. Patient denies any blurry vision double vision or photophobia. Patient denies any trauma or injury. [facility] Medical History ADHD Anxiety Home Medications ?Medication ?Instructions ?Recorded ?Last Taken ?Type aripiprazole 5 mg tablet 5 mg PO DAILY 02/07/24 Unknown History acyclovir 400 mg tablet 1 tab PO 5X/DAY #35 tabs 03/10/24 Unknown Rx Allergy/AdvReac Type Severity Reaction Status Date / Time No Known Allergies Allergy Verified 02/07/24 14:02 Surgical History no surgical history no surgical history Social History Smoking Status: Never smoker alcohol intake: never ROS ROS ED Constitutional Constitutional ED: Denies chills or fever(s) Eyes Eyes: Denies blurry vision or change in vision ENT ENT ED: Reports rhinorrhea; Denies sore throat Cardiovascular Cardiovascular: Denies chest pain or palpitations Respiratory/Chest Respiratory/Chest: Denies cough or dyspnea Gastrointestinal Gastrointestinal: Reports nausea; Denies vomiting Genitourinary Genitourinary ED: Denies dysuria or hematuria Musculoskeletal Musculoskeletal: Denies back pain or neck pain Integumentary Denies abscess or rash Neurologic Neurologic: Reports headache(s) and weakness Allergic/Immunologic Allergic/Immunologic ED: Denies mouth swelling or urticaria EXAM Physical Exam Const Vital Signs: 03/10/24 04:32 Temperature 98.3 F Temperature Source Oral Pulse Rate 84 Respiratory Rate 16 Blood Pressure 133/102 H Blood Pressure Mean 112 Pulse Ox 96 Oxygen Delivery Method Room Air Positive well nourished and well developed General Appearance ED: well developed and NAD HEENT Reports moist mucous membranes atraumatic; Negative for temporal artery tenderness Eyes PERRL and EOMs intact bilaterally Eyes Narrative: Conjunctival was injected on the right. Conjunctival was clear on the left. Neck supple and no JVD Extremity full ROM Neuro oriented x3, CN's II-XII intact bilaterally and no sensory deficits noted Amy Coma Scale: document GCS findings Spontaneous Obeys Commands Oriented 15 Sensorium / Orientation: awake and alert Speech: speech normal Motor Exam: strength 5/5 throughout Psych mental status grossly normal Skin Skin Narrative: There is a patchy erythematous rash over the right forehead and frontal scalp. There are some small vesicles noted. There are no pustules noted. There are no petechia noted. There is no involvement of mucous membranes. There is no involvement of the palms or soles. There is no involvement of the tip of the nose. MDM MDM MDM Narrative Medical decision making narrative: Differential diagnosis includes varicella-zoster, corneal abrasion, conjunctivitis, herpes ophthalmicus, and migraine headaches. The right eye was anesthetized with 2 drops of tetracaine. Fluorescein dye was applied. There is a corneal abrasion over the superior medial aspect of the right cornea at the 1 o'clock position. There are no dendritic lesions noted. Anterior chamber was clear. There is no cell or flare. Conjunctiva was injected. There are no foreign bodies noted. Treatment and Re-Evaluation Narrative: Patient was advised of his findings. Patient was given a dose of erythromycin ophthalmic ointment here. Patient was given the ointment to take home with him. Patient was instructed to apply this to his right eye 3 times daily. Patient was also given a prescription for acyclovir. Patient was instructed to take the acyclovir 5 times daily. Patient was instructed to follow-up with his primary care physician in 5 to 7 days. Patient was instructed return if worse in any way. Patient understood and was agreeable with the plan. All questions were answered. Discharge Plan Triage Chief Complaint: Headache ED Provider: Callum Ram Dx/Rx/DC Orders Clinical Impression: Varicella zoster, Corneal abrasion Instructions: ED Corneal Abrasion, ED Shingles (Herpes Zoster) Prescriptions: New acyclovir 400 mg tablet 1 tab PO 5X/DAY Qty: 35 0RF No Action aripiprazole 5 mg tablet 5 mg PO DAILY Primary Care Provider: Reynaldo Cole Referrals: Reynaldo Cole MD [Primary Care Provider] - 5-7 Days Print Language: Yi Disposition Disposition: Home, Self Care
[2024-03-10] MEDS: Fluorescein 1 MG STRIP 1 STRIP OPHTHALMIC (05:39)
[2024-03-10] MEDS: Tetracaine 0.5% Ophthalmic Bottle 1 DRP OPHTHALMIC (05:39)
[2024-03-10 06:32] VITALS: BP 150/103; PULSE 70; RESP 18; TEMP 36; O2SAT 97
[2024-03-10] MEDS: Erythromycin Base 1 OPTH.TUBE 1 APPLIC RIGHT EYE (06:37)
[2024-03-10 06:42] VITALS: BP 154/103; PULSE 67; RESP 18; TEMP 36.3; O2SAT 97
== END 2024-03-10 06:43 | disposition home or self-care (01) ==
PROVIDERS: Emergency Provider Emergency Medicine; PCP Family Medicine; Visit Provider Emergency Medicine
DX: S05.01XA Injury of conjunctiva and corneal abrasion without foreign body, right eye, initial encounter (principal); B01.9 Varicella without complication; R11.0 Nausea
CPT/HCPCS: 99283